=== PATIENT | female | born 1950 | race Caucasian/White ===

== ENCOUNTER 2017-04-24 09:05 | Emergency (ER) | payer OTHER ==
--- NOTE | 2017-04-24 09:12 | PDOC ---
History of Present Illness - General Chief Complaint: Injury Stated Complaint: FALL Time Seen by Provider: 04/24/17 09:12 - History of Present Illness Initial Comments: 04/24/17 09:37 Ms. pSencer is a 66 yo female w/ no pmh who presents following fall this morning. Per patient she was getting off of the bus when she fell onto her outstretched hand (right). She is currently reporting right wrist pain. The patient denies chest pain, shortness of breath, headache and dizziness. Denies fever, chills, nausea, vomit, diarrhea and constipation. Denies dysuria, frequency, urgency and hematuria. Allergies: NKDA Past History - Past Medical History Allergies/Adverse Reactions: Allergies Allergy/AdvReac Type Severity Reaction Status Date / Time No Known Allergies Allergy Verified 04/24/17 09:47 Home Medications: Ambulatory Orders NK [No Known Home Medication] 04/24/17 Review of Systems - Review of Systems Comments:: 04/24/17 11:24 GENERAL/CONSTITUTIONAL: No fever or chills. No weakness. HEAD, EYES, EARS, NOSE AND THROAT: No change in vision. No ear pain or discharge. No sore throat. CARDIOVASCULAR: No chest pain or shortness of breath RESPIRATORY: No cough, wheezing, or hemoptysis. GASTROINTESTINAL: No nausea, vomiting, diarrhea or constipation. GENITOURINARY: No dysuria, frequency, or change in urination. MUSCULOSKELETAL: +Right arm pain SKIN: No rash NEUROLOGIC: No headache, vertigo, loss of consciousness, or change in strength/ sensation. ENDOCRINE: No increased thirst. No abnormal weight change HEMATOLOGIC/LYMPHATIC: No anemia, easy bleeding, or history of blood clots. ALLERGIC/IMMUNOLOGIC: No hives or skin allergy. *Physical Exam - Physical Exam Comments: 04/24/17 11:25 GENERAL: Awake, alert, and fully oriented, in no acute distress HEAD: No signs of trauma, normocephalic, atraumatic EYES: PERRLA, EOMI, sclera anicteric, conjunctiva clear ENT: Auricles normal inspection, hearing grossly normal, nares patent, oropharynx clear without exudates. Moist mucosa NECK: Normal ROM, supple, no lymphadenopathy, JVD, or masses LUNGS: No distress, speaks full sentences, clear to auscultation bilaterally HEART: Regular rate and rhythm, normal S1 and S2, no murmurs, rubs or gallops, peripheral pulses normal and equal bilaterally. ABDOMEN: Soft, nontender, normoactive bowel sounds. No guarding, no rebound. No masses EXTREMITIES: +RUE swollen at wrist and TTP. Distal pulses in tact. No loss of sensation. Cap refill normal. NEUROLOGICAL: Cranial nerves II through XII grossly intact. Normal speech, normal gait, no focal sensorimotor deficits SKIN: Warm, Dry, normal turgor, no rashes or lesions noted. Medical Decision Making - Medical Decision Making 04/24/17 11:26 X-ray positive for Colles fracture. Consulted with orthopedics paper cone machine operator (Dr. Álvarez ). Partner (Dr. Moon) will see pt. tomorrow. Fracture splinted with Radial gutter, distal pulses maintained along with sensation and strength. Patient verbalized she will f/u with [facility] tomorrow. D /Cing to home. *DC/Admit/Observation/Transfer Diagnosis at time of Disposition: Colles' fracture Qualifiers: Encounter type: initial encounter Fracture type: closed Laterality: right Qualified Code(s): S52.531A - Colles' fracture of right radius, initial encounter for closed fracture - Discharge Dispostion Disposition: HOME - Referrals Referrals: Favian Moon MD [Staff Physician] - - Patient Instructions Printed Discharge Instructions: Colles' Fracture Additional Instructions: We are sorry you fell today. Please return if any fever, increase in pain, or loss of sensation. Follow-up with Orthopedics tomorrow as discussed. - Post Discharge Activity
[2017-04-24 09:29] VITALS: BP 148/80; PULSE 74; TEMP 97.5; BMI 26.4
--- NOTE | 2017-04-24 09:33 | PDOC ---
Attending Attestation - Resident Resident Name: Jeronimo Orellana - ED Attending Attestation I have performed the following: I have examined & evaluated the patient, The case was reviewed & discussed with the resident, I agree w/resident's findings & plan, Exceptions are as noted - HPI HPI: 04/24/17 [id number] yo fell on outstretched right hand, c/o pain and swelling to right wrist/jamnd - Physicial Exam PE: 04/24/17 09:32 Swelling obvious, Hand NV Intact - Medical Decision Making 04/24/17 09:[address] Orellana's assessment and plan
== END 2017-04-24 11:37 | disposition home or self-care (01) ==
LOC: JER 09:05
PROC: 2W3CX1Z Immobilization of Right Lower Arm using Splint (ICD-10-PCS; principal; 2017-04-24)
DX: S52.531A Colles' fracture of right radius, initial encounter for closed fracture (principal); V74.4XXA Person boarding or alighting from bus injured in collision with heavy transport vehicle or bus, initial encounter; Y93.89 Activity, other specified; Y92.410 Unspecified street and highway as the place of occurrence of the external cause
CPT/HCPCS: 73090-TC-RT; 73110-TC-RT; 73130-TC-RT; 99281-25